=== PATIENT | female | born 1965 | race American Indian/Alaskan Native ===

== ENCOUNTER 2017-12-21 13:07 | Emergency (ER) | payer OTHER ==
--- NOTE | 2017-12-21 13:31 | Emergency Department Report ---
ED Psych HPI - General Chief Complaint: Psych Stated Complaint: MENTAL HEALTH Time Seen by Provider: 12/21/17 13:21 Source: patient, EMS Mode of arrival: Ambulatory - History of Present Illness Initial Comments: Patient is 52 years old female with history of bipolar disorder presents to the ER via EMS after a neighbor called for a disturbance in the patient's house. Patient is in obvious and acute psychosis. Patient with flights of ideas and pressure speech. She stated that she stopped taking her medication because she doesn't like it. She denied any visual or auditory hallucination but patient is talking to someone that is not existing. She denied suicidal or homicidal ideation. MD Complaint: altered mental status - Related Data Allergies Allergy/AdvReac Type Severity Reaction Status Date / Time No Known Allergies Allergy Unverified 12/21/17 13:24 ED Review of Systems ROS: Stated complaint: MENTAL HEALTH Other details as noted in HPI Comment: All other systems reviewed and negative Constitutional: denies: chills, fever Respiratory: denies: cough, orthopnea, shortness of breath, SOB with exertion, SOB at rest, wheezing Cardiovascular: denies: chest pain, palpitations, dyspnea on exertion Gastrointestinal: denies: abdominal pain, nausea, vomiting, diarrhea, constipation Musculoskeletal: denies: back pain Neurological: denies: headache, weakness, numbness, paresthesias, confusion, abnormal gait ED Past Medical Hx - Past Medical History Previous Medical History?: Yes Hx Psychiatric Treatment: Yes (Bipolar) - Surgical History Past Surgical History?: Yes Additional Surgical History: C section - Social History Smoking Status: Current Every Day Smoker Substance Use Type: None ED Physical Exam - General Limitations: Other General appearance: alert, anxious, other (agitated) - Head Head exam: Present: atraumatic, normocephalic, normal inspection - Eye Eye exam: Present: normal appearance - ENT ENT exam: Present: normal exam, normal orophraynx, mucous membranes moist - Neck Neck exam: Present: normal inspection - Respiratory Respiratory exam: Present: normal lung sounds bilaterally. Absent: respiratory distress, wheezes, rales, rhonchi, stridor, accessory muscle use, decreased breath sounds, prolonged expiratory - Cardiovascular Cardiovascular Exam: Present: regular rate, normal rhythm, normal heart sounds - GI/Abdominal GI/Abdominal exam: Present: soft, normal bowel sounds. Absent: distended, tenderness, guarding, rebound, rigid, organomegaly, mass, bruit, pulsatile mass - Back Exam Back exam: Present: normal inspection, full ROM. Absent: CVA tenderness (L) - Neurological Exam Neurological exam: Present: alert, oriented X3, CN II-XII intact, normal gait, reflexes normal - Psychiatric Psychiatric exam: Present: agitated, anxious, manic. Absent: homicidal ideation , suicidal ideation - Skin Skin exam: Present: warm, intact, normal color ED Course Vital Signs 12/21/17 13:19 Temperature 98.6 F Pulse Rate 111 H Respiratory 16 Rate Blood Pressure 150/96 O2 Sat by Pulse 100 Oximetry Critical care attestation.: If time is entered above; I have spent that time in minutes in the direct care of this critically ill patient, excluding procedure time. ED Disposition Clinical Impression: Acute psychosis Disposition: [id number]/TX-65 PSY HOSP/PSY UNIT Is pt being admited?: No Condition: Stable
[2017-12-21] MEDS ORDERED: GEODON IM ONE (13:41)
[2017-12-21 14:06] LABS: Basophils % (Auto) 0.5 % (0.0-1.8); Eosinophils # (Auto) 0.1 K/mm3 (0.0-0.4); Hematocrit 39.8 % (30.3-42.9); Hemoglobin 13.4 gm/dl (10.1-14.3); Lymphocytes # (Auto) 1.5 K/mm3 (1.2-5.4); Lymphocytes % (Auto) 32.4 % (13.4-35.0); Mean Corpuscular HGB Conc 34 % (30-34); Mean Corpuscular Hemoglobin 28 pg (28-32); Mean Corpuscular Volume 84 fl (79-97); Monocytes # (Auto) 0.4 K/mm3 (0.0-0.8); Monocytes % (Auto) 9.4 % (0.0-7.3); Platelet Count 218 K/mm3 (140-440); Red Blood Count 4.72 M/mm3 (3.65-5.03); Red Cell Distribution Width 16.5 % (13.2-15.2)
[2017-12-21 14:21] LABS: BUN/Creatinine Ratio 14; Blood Urea Nitrogen 10 mg/dL (7-17); Calcium 9.5 mg/dL (8.4-10.2); Hemolysis Index 0
[2017-12-21 15:43] LABS: Bilirubin,Urine NEG (Negative); Blood,Urine SM (Negative); Color,Urine Yellow (Yellow); Mucus,Urine 1+ /HPF; Protein,Urine <15 mg/dL mg/dL (Negative)
[2017-12-21 15:46] LABS: Amphetamine Screen,Urine PRESUMPTIVE NEGATIVE; Benzodiazepines Screen,Urine PRESUMPTIVE NEGATIVE; Cocaine Screen,Urine PRESUMPTIVE NEGATIVE; Methadone Screen,Urine PRESUMPTIVE NEGATIVE; Opiate Screen,Urine PRESUMPTIVE NEGATIVE
[2017-12-21 16:15] LABS: Cannabinoid Screen,Urine PRESUMPTIVE POSITIVE
[2017-12-21] MEDS ORDERED: ATIVAN IM ONE (18:00)
[2017-12-22] MEDS ORDERED: TYLENOL ONE (04:25)
[2017-12-22] MEDS ORDERED: TYLENOL PO ONE (04:29)
[2017-12-22] MEDS ORDERED: ATIVAN IM ONE (05:30)
[2017-12-22] MEDS ORDERED: ATIVAN ONE (05:40)
--- NOTE | 2017-12-22 23:56 | Consultation ---
History of Present Illness - Reason for Consult Consult date: 12/22/17 Reason for consult: psychiatric evaluation/psychosis - Chief Complaint Chief complaint: "I don't want to talk to you." - History of Present Psychiatric Illness Ms. Covarrubias is 52 years old female with history of bipolar disorder presented to the ER via EMS after a neighbor called for a disturbance in the patient's house. She was seen in the ER for psychiatric evaluation. Patient with flight of ideas and pressured speech. She told the staff she stopped taking her medication because she doesn't like it. She kept getting out of bed and would casino manager the doorway and speak to whoever walked by. She stated she would not answer questions. Medications and Allergies Allergies Allergy/AdvReac Type Severity Reaction Status Date / Time No Known Allergies Allergy Verified 12/22/17 04:38 Home Medications Medication Instructions Recorded Confirmed Last Taken Type Unobtainable 12/22/17 12/22/17 Unknown History Past psychiatric history - Past Medical History Past Medical History: other (unknown) - past Psychiatric treatment and history Psych: Bipolar, Psychosis psychiatric treatment history: unknown Mental Status Exam - Vital signs Last Vital Signs Temp 98.6 F 12/22/17 10:00 Pulse 87 12/22/17 10:00 Resp 18 12/22/17 10:00 BP 123/86 12/22/17 10:00 Pulse Ox 99 12/22/17 10:00 - Exam Orientation: place, person Affect: agitated Mood: congruent with affect Thought content: other (unable to assess) Thought Process: Tangential, Flight of Ideas Perceptions: other (unable to assess) Speech: pressured Concentration: unable to pay attention Motor activity: restless Level of consciousness: alert Sleep Symptoms: Difficulty Falling Asleep Interaction: uncooperative Results Result Diagrams: 12/21/17 13:46 12/21/17 13:46 All other labs normal. Assessment and Plan Assessment and plan: Impression: bipolar disorder with psychosis r/o schizoaffective d/o, bipolar type Recommendations: continue 1013 and transfer to inpatient psychiatric facility. Start seroquel 100mg hs for psychosis.
[2017-12-23] MEDS ORDERED: ATIVAN IM ONE (07:52)
[2017-12-23] MEDS ORDERED: GEODON IM ONE (07:53)
[2017-12-23] MEDS ORDERED: WATER FOR INJ (PF) ONE (08:00)
[2017-12-23] MEDS ORDERED: TYLENOL PO PRN (12:34)
--- NOTE | 2017-12-23 12:36 | Emergency Department Report ---
Blank Doc - Documentation Documentation: Patient prescribed Tylenol on a when necessary basis every 4 hours, 650 mg, as needed for knee pain. She has been given this before, has no allergies
--- NOTE | 2017-12-23 14:08 | Emergency Department Report ---
Blank Doc - Documentation Documentation: *Says patient for persistent and possibly increasing levels of aggressiveness and agitation. Time of examination, 1345 hrs. 52-year-old woman with bipolar schizophrenia, currently under 1013 confinement for placement at facility for inpatient treatment. Patient was brought in for increased agitation and aggressive behavior by police, felt to be psychotic at time of examination here, was placed under 1013 confinement at that time. Patient has been somewhat stable, but has been generally aggressive, and although in seclusion, has been maintaining presence at the doorway in the hallway, talking to people, although she is not threatening or accosting people , she has had persistent aggressive or certain behavior, and is somewhat resistant to calming measures or resting on stretcher, reporting that she has a bad back. Nurse at this time feels that patient's behavior is persistent and is escalating, and he is concerned that patient needs additional sedation. On my examination, I find patient to be somewhat forward and blunt and our interactions, and that she is borderline aggressive, but is not overtly hostile , and she seems borderline agitated, but is not tremulous, does not yell, does not make threats, but states clearly that she does not believe that she needs to be here, and does not believe that she needs any medications, and that she should be discharged. When I explained the reasons for her confinement, patient disagrees, but makes no direct movements to try to leave, nor does she make any threatening activities, reporting that she is calm, and that she is in control of her faculties. However, patient does have some pressured speech remaining, level of agitation is borderline, although not overtly threatening, and her orientation is good, knowing time, place, person, but her insight into her condition is still fairly poor, as she does not acknowledge her bipolar disorder, schizophrenia, or need for medication. Although patient would likely benefit from sedation, I am willing to give her some period of observation and avoid need for intramuscular medication, but I believe that she is just about at the point of needing medication for behavior control, and I will place a when necessary order for intramuscular Geodon, should she have escalating aggressive or violent behavior, or should nurse feel that patient represents a significant risk for outbursts or attempts at eldopement.
[2017-12-23] MEDS ORDERED: ATIVAN PO PRN (14:09)
--- NOTE | 2017-12-23 14:22 | Progress Note ---
Subjective - Reason for Consult Consult date: 12/23/17 Reason for consult: Psychiatry Follow-up - Chief Complaint Chief complaint: "Can you listen 52 years old female with history of bipolar disorder presented to the ER via EMS after a neighbor called for a disturbance in the patient's house. Today the patient is anxious and hyper verbal during the assessment. She had to be redirected several times to keep her on topic. She had to be directed back to her room several times per the staff after leaving her assigned room. No gestures of SI/HI's. Mental Status Exam - Vital signs Last Vital Signs Temp 98.1 F 12/23/17 07:36 Pulse 99 H 12/23/17 07:36 Resp 16 12/23/17 07:36 BP 152/93 12/23/17 07:36 Pulse Ox 99 12/23/17 07:36 - Exam Narrative exam: MSE: Appearance: calm Behavior: regular eye contact Speech: pressured speech, hyper verbal Mood: anxious Affect: congruent to mood Thought Process: tangential Thought Content: no gestures of SI/HI's Motor Activity: ambulatory Cognition: A/O x 3 Insight: poor Judgment: poor Assessment and Plan Impression: Bipolar DO with psychosis. Cannabis Use DO. Today the patient is anxious and hyper verbal during the assessment. DDx: R/O Schizoaffective DO, R/O Schizophrenia, R/O Substance Induced Psychosis Recommendations/Plan: Continue 1013 and transfer to inpatient psychiatric facility. Increase Seroquel to 200 mg PO HS for psychosis and start Vistaril 25 mg PO BID for anxiety. Attempted to discuss possible metabolic side effects of Seroquel with patient.
[2017-12-23] MEDS: VISTARIL PO SCH ×2 (14:55→22:00)
[2017-12-24] MEDS ORDERED: WATER FOR INJ (PF) ONE (11:12)
[2017-12-24] MEDS: VISTARIL PO SCH ×2 (11:29→22:59)
[2017-12-24] MEDS: GEODON IM PRN (11:31)
--- NOTE | 2017-12-24 13:22 | Progress Note ---
Subjective - Reason for Consult Consult date: 12/24/17 Reason for consult: Psychiatry Follow-up - Chief Complaint Chief complaint: "I live in near [place], [place]" 52 years old female with history of bipolar disorder presented to the ER via EMS after a neighbor called for a disturbance in the patient's house. Today the patient is cooperative and more organized during the assessment. She stated that she reside near [place], [place]. She stated that she has a psychiatrist at [facility]. She denies SI/HI's and AVH's. She denies any side effects of her medications. Mental Status Exam - Vital signs Last Vital Signs Temp 98.7 F 12/23/17 22:00 Pulse 92 H 12/23/17 22:00 Resp 16 12/23/17 22:00 BP 105/73 12/23/17 22:00 Pulse Ox 100 12/23/17 22:00 - Exam Narrative exam: MSE: Appearance: cooperative Behavior: regular eye contact Speech: hyper verbal Mood: "okay" Affect: congruent to mood Thought Process: circumstantial Thought Content: denies SI/HI's and AVH's Motor Activity: ambulatory Cognition: A/O x 3 Insight: variable Judgment: variable Assessment and Plan Impression: Bipolar DO with psychosis. Cannabis Use DO. Today the patient is cooperative and more organized during the assessment. DDx: R/O Schizoaffective DO, R/O Schizophrenia, R/O Substance Induced Psychosis Recommendations/Plan: Continue 1013 and transfer to inpatient psychiatric facility. Continue Seroquel 200 mg PO HS for psychosis and Vistaril 25 mg PO BID for anxiety. Discussed possible metabolic side effects of Seroquel with patient.
[2017-12-25] MEDS: GEODON IM PRN (11:30)
--- NOTE | 2017-12-25 12:17 | Progress Note ---
Subjective - Reason for Consult Consult date: 12/25/17 Reason for consult: Psychiatric Follow-up Evaluation - Chief Complaint Chief complaint: "" Patient is a 52 years old female with history of bipolar disorder presented to the ER via EMS after a neighbor called for a disturbance in the patient's house. Today the patient is cooperative and more organized during the assessment. She stated that she reside near [place], [place]. She stated that she has a psychiatrist at [facility]. She denies SI/HI's and AVH's. She denies any side effects of her medications. Mental Status Exam - Vital signs Last Vital Signs Temp 98.7 F 12/24/17 23:00 Pulse 91 H 12/24/17 23:00 Resp 17 12/24/17 23:00 BP 145/89 12/24/17 23:00 Pulse Ox 97 12/24/17 23:00 - Exam Narrative exam: Mental Status Exam: Appearance: cooperative Behavior: regular eye contact Speech: hyper verbal Mood: "okay" Affect: congruent to mood Thought Process: circumstantial Thought Content: denies SI/HI's and AVH's Motor Activity: ambulatory Cognition: A/O x 3 Insight: variable Judgment: variable Assessment and Plan Impression: Bipolar DO with psychosis. Cannabis Use DO. Today the patient is cooperative and more organized during the assessment. DDx: R/O Schizoaffective DO, R/O Schizophrenia, R/O Substance Induced Psychosis Recommendations/Plan: Continue 1013 and transfer to inpatient psychiatric facility. Continue Seroquel 200 mg PO HS for psychosis and Vistaril 25 mg PO BID for anxiety. Discussed possible metabolic side effects of Seroquel with patient.
[2017-12-25 18:56] VITALS: BP 123/72
[2017-12-25] MEDS: VISTARIL PO SCH (19:03)
== END 2017-12-25 11:30 ==
LOC: ED 13:07 → EEVIPCON 13:07 → ED 12-25 11:30
DX: F23 Brief psychotic disorder (principal); F31.9 Bipolar disorder, unspecified; F17.200 Nicotine dependence, unspecified, uncomplicated
CPT/HCPCS: 36415; 80048; 80307; 81001; 85025; 96372; 99285; G0480; J2060; J3486; 80320; Q0177